=== PATIENT | male | born 1980 | race Caucasian/White ===

== ENCOUNTER 2017-01-11 22:03 | Emergency (ER) | payer SELFPAY ==
[~2017-01-11] VITALS: Ht 182.9 cm; Wt 70.0 kg
[2017-01-11 22:11] VITALS: BP 139/82; PULSE 100; RESP 18; TEMP 98.2; O2SAT 98
[2017-01-11] MEDS ORDERED: SODIUM CHLORIDE 0.9% FLUSH 10 ML FLUSH IVF PRN (22:45)
--- NOTE | 2017-01-11 22:45 | PD ---
HPI . Dyspnea Chief Complaint: Respiratory Distress Time Seen by Provider: 22:21 Travel History International Travel<30 days: No Contact w/Intl Traveler<30days: No Traveled to known affect area: No History of Present Illness HPI This patient presents via [facility] with the chief complaint of dyspnea. Onset was one hour prior to presentation. He states that it started after snorting heroin. He states that the dyspnea is getting progressively better. He states that he felt very panicky and scared and anxious and called 911. He denies any chronic underlying medical problems including asthma. [facility] Past Medical History Atrial Fibrillation: Yes Anxiety: Yes Social History Alcohol Use: No Tobacco Use: Yes Substance Use: Yes (heroin) Allergies-Medications (Allergen,Severity, Reaction): Coded Allergies: No Known Allergies (Verified Allergy, Unknown, 01/11/17) Review of Systems Except as stated in HPI: all other systems reviewed are Neg General / Constitutional: No: Fever, Chills Cardiovascular: No: Chest Pain or Discomfort Respiratory: Positive: Shortness of Breath, No: Cough Psychiatric: Positive: Anxiety Physical Exam Narrative GENERAL: The patient looks comfortable. SKIN: warm/dry. HEAD: Normocephalic. Atraumatic. EYES: Pupils equal and round. No scleral icterus. No injection or drainage. ENT: No nasal bleeding or discharge. Mucous membranes pink and moist. NECK: Trachea midline. Full range of motion without pain.. CARDIOVASCULAR: Regular rate and rhythm. Heart sounds normal. RESPIRATORY: No accessory muscle use. Clear to auscultation. Breath sounds equal bilaterally. Sats are in the low to mid 90s. GASTROINTESTINAL: Abdomen soft. Nontender. Bowel sounds present. Nondistended. MUSCULOSKELETAL: No obvious deformities. NEUROLOGICAL: Awake and alert. No obvious cranial nerve deficits. Motor grossly within normal limits. Normal speech. PSYCHIATRIC: Appropriate mood and affect; insight and judgment normal. Data Data Last Documented VS Vital Signs Date Time Temp Pulse Resp B/P (MAP) Pulse Ox O2 Delivery O2 Flow Rate FiO2 01/11/17 22:11 95 Room Air 01/11/17 22:11 98.2 100 18 139/82 (101) Orders Orders Complete Blood Count With Diff (01/11/17 22:39) Basic Metabolic Panel (Bmp) (01/11/17 22:39) B-Type Natriuretic Peptide (01/11/17 22:39) D-Dimer (01/11/17 22:39) Troponin I (01/11/17 22:39) Iv Access Insert/Monitor (01/11/17 22:39) Ecg Monitoring (01/11/17 22:39) Oximetry (01/11/17 22:39) Oxygen Administration (01/11/17 22:39) Chest, Single Ap (01/11/17 22:39) Sodium Chloride 0.9% Flush (Ns Flush) (01/11/17 22:45) Labs Laboratory Tests Test 01/11/17 23:11 White Blood Count 6.3 TH/MM3 Red Blood Count 4.56 MIL/MM3 Hemoglobin 13.4 GM/DL Hematocrit 39.5 % Mean Corpuscular Volume 86.6 FL Mean Corpuscular Hemoglobin 29.5 PG Mean Corpuscular Hemoglobin Concent 34.0 % Red Cell Distribution Width 13.9 % Platelet Count 114 TH/MM3 Mean Platelet Volume 9.3 FL Neutrophils (%) (Auto) 65.7 % Lymphocytes (%) (Auto) 24.4 % Monocytes (%) (Auto) 8.5 % Eosinophils (%) (Auto) 1.1 % Basophils (%) (Auto) 0.3 % Neutrophils # (Auto) 4.1 TH/MM3 Lymphocytes # (Auto) 1.5 TH/MM3 Monocytes # (Auto) 0.5 TH/MM3 Eosinophils # (Auto) 0.1 TH/MM3 Basophils # (Auto) 0.0 TH/MM3 CBC Comment DIFF FINAL Differential Comment D-Dimer Quantitative (PE/DVT) LESS THAN 0.19 MG/L FEU Blood Urea Nitrogen 14 MG/DL Creatinine 0.96 MG/DL Random Glucose 103 MG/DL Calcium Level 8.8 MG/DL Sodium Level 139 MEQ/L Potassium Level 3.8 MEQ/L Chloride Level 102 MEQ/L Carbon Dioxide Level 29.6 MEQ/L Anion Gap 7 MEQ/L Estimat Glomerular Filtration Rate 89 ML/MIN Troponin I LESS THAN 0.02 NG/ML B-Type Natriuretic Peptide 8 PG/ML MDM Medical Decision Making Medical Screen Exam Complete: Yes Emergency Medical Condition: Yes Differential Diagnosis Differential diagnosis of dyspnea includes but is not limited to congestive heart failure, pneumonia, wheezing, pneumothorax, pulmonary embolism Narrative Course This patient presents with the chief complaint of dyspnea. His lungs are clear. Initial sats were 98% but they were down to 93% while was in the room. Therefore, I have initiated a workup including chest x-ray, d-dimer, BNP, troponin. Disposition will be based on the results of these tests. CBC Diagram 01/11/17 23:11 CXR>>no acute process BMP Diagram 01/11/17 23:11 Calcium Level 8.8 D-dimer is less than 0.19 Troponin is less than 0.02 BNP is 8 This patient is stable for discharge. The history, exam, diagnostic testing, and current condition do not suggest any significant pathology to warrant further testing, continued ED treatment, admission, or surgical evaluation at this point. No EMC was found. The patient 's condition is stable and appropriate for discharge. Diagnosis Primary Impression: Dyspnea Qualified Codes: R06.00 - Dyspnea, unspecified Additional Impressions: Anxiety Heroin abuse Patient Instructions: Dyspnea (DC), General Instructions Disposition: 01 DISCHARGE HOME Condition: Stable Nyasia Vo MD Jan 11, 2017 22:45
--- NOTE | 2017-01-11 23:27 | RADRPT ---
EXAM DATE/TIME: 01/11/2017 22:59 [place] COMPARISON: No previous studies available for comparison. INDICATIONS : Short of breath. MEDICAL HISTORY : None. SURGICAL HISTORY : None. ENCOUNTER: Initial ACUITY: 1 day PAIN SCORE: 0/10 LOCATION: Bilateral chest FINDINGS: A single view of the chest demonstrates the lungs to be symmetrically aerated without evidence of mas s, infiltrate or effusion. The cardiomediastinal contours are unremarkable. Osseous structures are intact. CONCLUSION: No acute disease. Jax Win MD on January 11, 2017 at 23:25 Board Certified Radiologist. This report was verified electronically.
[2017-01-11 23:37] LABS: AUTOMATED NEUTROPHIL # 4.1 TH/MM3 (1.8-7.7); BASOPHIL % 0.3 % (0.0-2.0); EOSINOPHIL # 0.1 TH/MM3 (0-0.4); EOSINOPHIL % 1.1 % (0.0-4.0); HEMATOCRIT 39.5 % (39.0-51.0); HEMO FLAGS DIFF FINAL; LYMPH % 24.4 % (9.0-44.0); LYMPHOCYTE # 1.5 TH/MM3 (1.0-4.8); MEAN CELL VOLUME 86.6 FL (80.0-100.0); MEAN CORPUSCULAR HEMOGLOBIN 29.5 PG (27.0-34.0); MONO % 8.5 % (0.0-8.0); NEUT % 65.7 % (16.0-70.0); PLATELET COUNT 114 TH/MM3 (150-450); RED BLOOD COUNT 4.56 MIL/MM3 (4.50-5.90); RED CELL DISTRIBUTION WIDTH 13.9 % (11.6-17.2); WHITE BLOOD COUNT 6.3 TH/MM3 (4.0-11.0)
[2017-01-12 00:05] LABS: ANION GAP 7 MEQ/L (5-15); BICARBONATE 29.6 MEQ/L (21.0-32.0); BLOOD UREA NITROGEN 14 MG/DL (7-18); CHLORIDE 102 MEQ/L (98-107); GLOMERULAR FILTRATION RATE 89 ML/MIN (>89); POTASSIUM 3.8 MEQ/L (3.5-5.1); SODIUM (NA) 139 MEQ/L (136-145)
== END 2017-01-12 00:52 | disposition home or self-care (01) ==
LOC: NEPE 22:03
DX: R06.00 Dyspnea, unspecified (principal); F41.9 Anxiety disorder, unspecified; F11.10 Opioid abuse, uncomplicated; I48.91 Unspecified atrial fibrillation; Z72.0 Tobacco use
CPT/HCPCS: 71010; 80048; 83880; 84484; 85025; 85379; 99284